=== PATIENT | female | born 1980 | race American Indian/Alaskan Native ===

== ENCOUNTER 2018-10-21 07:14 | Emergency (ER) | payer SELFPAY ==
[2018-10-21 07:22] VITALS: BP 138/81
--- NOTE | 2018-10-21 08:10 | Emergency Department Report ---
ED General Adult HPI - General Chief complaint: Extremity Injury, Lower Stated complaint: RT Greater TOE PAIN Source: patient Mode of arrival: Ambulatory Limitations: Physical Limitation - History of Present Illness Initial comments: 38yo F presents with R foot pain. She states that everyday she walks a long distance for work and stands on her feet for long hours. Pt states that she took a BC powder and iced her foot but still did not have any relief. -: days(s) (2) Location: lower extremity Radiation: non-radiation Severity scale (0 -10): 9 Quality: aching Consistency: constant Improves with: none Worsens with: movement Associated Symptoms: denies other symptoms Treatments Prior to Arrival: NSAID, cold therapy - Related Data Previous Rx's Medication Instructions Recorded Last Taken Type Ibuprofen [Motrin 600 MG tab] 600 mg PO Q8H PRN 7 Days #21 tablet 10/21/18 Unknown Rx Allergies Allergy/AdvReac Type Severity Reaction Status Date / Time No Known Allergies Allergy Unverified 10/21/18 07:17 ED Review of Systems ROS: Stated complaint: RT TOE PAIN Other details as noted in HPI Constitutional: denies: chills, fever Eyes: denies: eye pain, eye discharge, vision change ENT: denies: ear pain, throat pain Respiratory: denies: cough, shortness of breath, wheezing Cardiovascular: denies: chest pain, palpitations Endocrine: no symptoms reported Gastrointestinal: denies: abdominal pain, nausea, diarrhea Genitourinary: denies: urgency, dysuria, discharge Musculoskeletal: as per HPI Skin: denies: rash, lesions Neurological: denies: headache, weakness, paresthesias Psychiatric: denies: anxiety, depression Hematological/Lymphatic: denies: easy bleeding, easy bruising ED Past Medical Hx - Past Medical History Previous Medical History?: No - Surgical History Additional Surgical History: hernia surg at - Social History Smoking Status: Current Every Day Smoker Substance Use Type: None - Medications Home Medications: Home Medications Medication Instructions Recorded Confirmed Last Taken Type Ibuprofen [Motrin 600 MG tab] 600 mg PO Q8H PRN 7 Days #21 tablet 10/21/18 Unknown Rx ED Physical Exam - General Limitations: Physical Limitation (severe pain of R foot with ambulation) General appearance: alert, in no apparent distress - Head Head exam: Present: atraumatic, normocephalic - Eye Eye exam: Present: normal appearance - ENT ENT exam: Present: mucous membranes moist - Neck Neck exam: Present: normal inspection - Respiratory Respiratory exam: Present: normal lung sounds bilaterally. Absent: respiratory distress - Cardiovascular Cardiovascular Exam: Present: regular rate, normal rhythm. Absent: systolic murmur, diastolic murmur, rubs, gallop - GI/Abdominal GI/Abdominal exam: Present: soft, normal bowel sounds - Rectal Rectal exam: Present: deferred - Extremities Exam Extremities exam: Present: normal inspection - Expanded Lower Extremity Exam Right Lower Leg exam: Present: normal inspection Foot/Toe exam: Present: tenderness, swelling (swelling and tendernes over the forefoot and point tenderness at the distal 1st metatarsal) - Back Exam Back exam: Present: normal inspection - Neurological Exam Neurological exam: Present: alert, oriented X3 - Psychiatric Psychiatric exam: Present: normal affect, normal mood - Skin Skin exam: Present: warm, dry, intact, normal color. Absent: rash ED Course Vital Signs 10/21/18 07:21 Temperature 98.4 F Pulse Rate 88 Respiratory 16 Rate Blood Pressure 138/81 O2 Sat by Pulse 100 Oximetry ED Medical Decision Making - Medical Decision Making 38yo F presents with R foot pain. She states that everyday she walks a long distance for work and stands on her feet for long hours. Pt states that she took a BC powder and iced her foot but still did not have any relief. R foot x-rays were ordered and the results are listed below. Pt was instructed to RICE, take NSAIDs as prescribed, and to F/U with PCP. See ER if severe symptoms arise. Patient: AL DASH MR#: [id number] : 1980 Acct:[id number] Age/Sex: 38 / F ADM Date: 10/21/18 Loc: ED Attending Dr: Ordering Physician: ENA NICOLE PA-C Date of Service: 10/21/18 Procedure(s): XR foot 3+V RT Accession Number(s): [id number] cc: ENA NICOLE PA-C Fluoro Time In Minutes: RIGHT FOOT 3 VIEWS INDICATION / CLINICAL INFORMATION: R foot pain. COMPARISON: None available. FINDINGS: Mild degenerative arthrosis is seen within the first MTP joint. Mild dorsal soft tissue swelling is seen overlying the right forefoot. No fracture or dislocation is seen. Signer Name: Kwadwo Akbar MD Signed: 10/21/2018 8:29 AM Workstation Name: [id number] Transcribed By: TL Dictated By: Kwadwo Akbar MD Electronically Authenticated By: Kwadwo Akbar MD Signed Date/Time: 10/21/18 08 Critical care attestation.: If time is entered above; I have spent that time in minutes in the direct care of this critically ill patient, excluding procedure time. ED Disposition Clinical Impression: Foot pain, right Disposition: DC-01 TO HOME OR SELFCARE Is pt being admited?: No Does the pt Need Aspirin: No Condition: Stable Instructions: Arthralgia (ED) Additional Instructions: Pt was instructed to RICE, take NSAIDs as prescribed, and to F/U with PCP. See ER if severe symptoms arise. Prescriptions: Ibuprofen [Motrin 600 MG tab] 600 mg PO Q8H PRN 7 Days #21 tablet PRN Reason: Pain Referrals: PRIMARY CAREMD [Primary Care Provider] - 3-5 Days [facility] [Outside] - 3-5 Days Forms: Work/School Release Form(ED) Time of Disposition: 08:59
--- NOTE | 2018-10-21 08:33 | XRay Report ---
RIGHT FOOT 3 VIEWS INDICATION / CLINICAL INFORMATION: R foot pain. COMPARISON: None available. FINDINGS: Mild degenerative arthrosis is seen within the first MTP joint. Mild dorsal soft tissue swelling is s een overlying the right forefoot. No fracture or dislocation is seen. Signer Name: Kwadwo Akbar MD Signed: 10/21/2018 8:29 AM Workstation Name: [id number]
== END 2018-10-21 09:09 | disposition home or self-care (01) ==
LOC: ED 07:14
DX: M79.671 Pain in right foot (principal); F17.200 Nicotine dependence, unspecified, uncomplicated

== ENCOUNTER 2019-04-16 11:02 | Emergency (ER) | payer SELFPAY ==
[2019-04-16 11:37] VITALS: BP 128/79
--- NOTE | 2019-04-16 11:37 | Event Note ---
ED Screening Note ED Screening Note: states began having dysuria yesterday no abd pain no fever no n/v/d PMHx none no allergies to meds LNMP: 03/28/2019 This initial assessment/diagnostic orders/clinical plan/treatment(s) is/are subject to change based on patients health status, clinical progression and re- assessment by fellow clinical providers in the ED. Further treatment and workup at subsequent clinical providers discretion. Patient/guardian urged not to elope from the ED as their condition may be serious if not clinically assessed and managed. Initial orders include: UA, urine preg
--- NOTE | 2019-04-16 12:07 | Emergency Department Report ---
ED Dysuria HPI - HPI Chief Complaint: Urogenital-Female Stated Complaint: URNIARY TRACK INFECTION Time Seen by Provider: 04/16/19 11:36 Duration: 2 Days Location of Discomfort: Urethra (dysuria) Severity: Mild Symptoms: Dysuria: Yes, Frequency: Yes, Suprapubic Pain: No, Flank Pain: No, Fever: No, Hematuria: No, Abdominal Pain: No, Previous UTI's: Yes Other History: This 38-year-old female presents with dysuria x2 days. She denies vaginal bleeding, vaginal discharge, fever, chills, nausea vomiting or diarrhea ED Review of Systems ROS: Stated complaint: URNIARY TRACK INFECTION Other details as noted in HPI Comment: All other systems reviewed and negative ED Past Medical Hx - Past Medical History Previous Medical History?: No - Surgical History Past Surgical History?: Yes Additional Surgical History: Hernia surgery at - Social History Smoking Status: Never Smoker Substance Use Type: None - Medications Home Medications: Home Medications Medication Instructions Recorded Confirmed Last Taken Type Ibuprofen [Motrin 600 MG tab] 600 mg PO Q8H PRN 7 Days #21 tablet 10/21/18 Unknown Rx Sulfamethoxazole/Trimethoprim 1 each PO BID #14 tablet 04/16/19 Unknown Rx [Bactrim DS TAB] Dysuria Exam - Exam General: Vital signs noted. No distress. Alert and acting appropriately. Exam: Yes Moist Mucous Membranes, No CVA Tenderness, No Abdominal Tenderness, No Rigidity or Guarding ED Course Vital Signs 04/16/19 11:15 Temperature 98.8 F Pulse Rate 99 H Respiratory 18 Rate Blood Pressure 128/79 O2 Sat by Pulse 100 Oximetry ED Medical Decision Making - Medical Decision Making 38-year-old female presents with a cute cystitis ED course: Patient received an antibiotic dose and Motrin during ED stay Urinalysis is positive for WBCs and hematuria I discussed this findings with the patient. Aisha with patient to follow-up with primary care physician Patient is in no acute distress, patient also has on instructions were given to him. He had on exam for ED stay. Critical care attestation.: If time is entered above; I have spent that time in minutes in the direct care of this critically ill patient, excluding procedure time. ED Disposition Clinical Impression: Acute cystitis, Hematuria Disposition: MED SCREENING EXAM-LEFT Is pt being admited?: No Does the pt Need Aspirin: No Condition: Stable Instructions: Urinary Tract Infection in Women (ED) Additional Instructions: Make sure to follow up with the primary care physician as discussed. Take all your medications as you've been prescribed. If you have any worsening symptoms or develop new symptoms please return to ED immediately. Prescriptions: Sulfamethoxazole/Trimethoprim [Bactrim DS TAB] 1 each PO BID #14 tablet Referrals: PRIMARY CARE, [Primary Care Provider] - 3-5 Days [facility] [Outside] - 3-5 Days [facility] [Outside] - 3-5 Days Forms: Work/School Release Form(ED) Time of Disposition: 12:13
[2019-04-16 12:09] LABS: Bilirubin,Urine NEG (Negative); Blood,Urine LG (Negative); Color,Urine Amber (Yellow); Mucus,Urine 3+ /HPF
[2019-04-16 12:10] LABS: RBC,Urine > 182.0 /HPF (0.0-6.0); WBC,Urine > 182.0 /HPF (0.0-6.0)
[2019-04-16 12:11] LABS: HCG Qualitative,Urine Negative (Negative)
== END 2019-04-16 12:34 | disposition left against medical advice (07) ==
LOC: ED 11:02
DX: N30.01 Acute cystitis with hematuria (principal); Z98.890 Other specified postprocedural states; Z79.899 Other long term (current) drug therapy
CPT/HCPCS: 81001; 81025

== ENCOUNTER 2020-06-24 12:28 | Emergency (ER) | payer SELFPAY ==
[2020-06-24 14:41] VITALS: BP 147/89
--- NOTE | 2020-06-24 15:57 | Emergency Department Report ---
ED ENT HPI - General Chief complaint: Dental/Oral Stated complaint: GUMS IRRITATED/CHIPPED TOOTH Time Seen by Provider: 06/24/20 14:42 Source: patient Mode of arrival: Ambulatory Limitations: No Limitations - History of Present Illness Initial comments: This is a 40-year-old female nontoxic, well nourished in appearance, no acute signs of distress presents to the ED with c/o of right lower toothache x 1 weeks. Patient denies following up with a dentist. Patient describes toothache as aching level of 8 out of 10. Patient denies any facial swelling. Patient denies any numbness, tingling, fever, chills, headache, stiff neck, abdominal pain, chest pain, shortness of breath. Patient denies any drug allergies or significant past medical history. MD complaint: tooth pain -: days(s) Location: tooth # Severity: mild Severity scale (0 -10): 8 Quality: aching Consistency: constant Improves with: none Worsens with: none Context- Dental: history of dental caries, poor dental care Associated Symptoms: gum swelling, toothache. denies: fever, cough, pain with swallowing, sore throat, tinnitus, hearing loss, discharge from ear, rhinorrhea - Related Data Previous Rx's Medication Instructions Recorded Last Taken Type Ibuprofen [Motrin 600 MG tab] 600 mg PO Q8H PRN 7 Days #21 tablet 10/21/18 Unknown Rx Sulfamethoxazole/Trimethoprim 1 each PO BID #14 tablet 04/16/19 Unknown Rx [Bactrim DS TAB] Chlorhexidine Mouthwash [Peridex] 15 ml MM BID #1 bottle 06/24/20 Unknown Rx Clindamycin [Clindamycin CAP] 300 mg PO Q8H #21 cap 06/24/20 Unknown Rx Allergies Allergy/AdvReac Type Severity Reaction Status Date / Time No Known Allergies Allergy Verified 06/24/20 14:41 ED Dental HPI - General Chief complaint: Dental/Oral Stated complaint: GUMS IRRITATED/CHIPPED TOOTH Time Seen by Provider: 06/24/20 14:42 Source: patient Mode of arrival: Ambulatory Limitations: No Limitations - Related Data Previous Rx's Medication Instructions Recorded Last Taken Type Ibuprofen [Motrin 600 MG tab] 600 mg PO Q8H PRN 7 Days #21 tablet 10/21/18 Unknown Rx Sulfamethoxazole/Trimethoprim 1 each PO BID #14 tablet 04/16/19 Unknown Rx [Bactrim DS TAB] Chlorhexidine Mouthwash [Peridex] 15 ml MM BID #1 bottle 06/24/20 Unknown Rx Clindamycin [Clindamycin CAP] 300 mg PO Q8H #21 cap 06/24/20 Unknown Rx Allergies Allergy/AdvReac Type Severity Reaction Status Date / Time No Known Allergies Allergy Verified 06/24/20 14:41 ED Review of Systems ROS: Stated complaint: GUMS IRRITATED/CHIPPED TOOTH Other details as noted in HPI Comment: All other systems reviewed and negative Constitutional: denies: chills, fever Eyes: denies: eye pain, eye discharge, vision change ENT: dental pain. denies: ear pain, throat pain Respiratory: denies: cough, shortness of breath, wheezing Cardiovascular: denies: chest pain, palpitations Endocrine: no symptoms reported Gastrointestinal: denies: abdominal pain, nausea, diarrhea Genitourinary: denies: urgency, dysuria, discharge Musculoskeletal: denies: back pain, joint swelling, arthralgia Skin: denies: rash, lesions Neurological: denies: headache, weakness, paresthesias Psychiatric: denies: anxiety, depression Hematological/Lymphatic: denies: easy bleeding, easy bruising ED Past Medical Hx - Past Medical History Previous Medical History?: No - Surgical History Additional Surgical History: Hernia surgery at - Social History Smoking Status: Current Every Day Smoker Substance Use Type: None - Medications Home Medications: Home Medications Medication Instructions Recorded Confirmed Last Taken Type Ibuprofen [Motrin 600 MG tab] 600 mg PO Q8H PRN 7 Days #21 tablet 10/21/18 Unknown Rx Sulfamethoxazole/Trimethoprim 1 each PO BID #14 tablet 04/16/19 Unknown Rx [Bactrim DS TAB] Chlorhexidine Mouthwash [Peridex] 15 ml MM BID #1 bottle 06/24/20 Unknown Rx Clindamycin [Clindamycin CAP] 300 mg PO Q8H #21 cap 06/24/20 Unknown Rx ED Physical Exam - General Limitations: No Limitations General appearance: alert, in no apparent distress - Head Head exam: Present: atraumatic, normocephalic - Eye Eye exam: Present: normal appearance - Expanded ENT Exam Expanded Ear exam: Present: normal external inspection Mouth exam: Present: normal external inspection, tongue normal. Absent: brandy oling, trismus, muffled voice Teeth exam: Present: dental caries, fractured tooth #, dental tenderness #, gingival enlargement, other (no swelling or abscess) - Neck Neck exam: Present: normal inspection, full ROM, other (uvula midline). Absent: tenderness, meningismus, lymphadenopathy - Respiratory Respiratory exam: Absent: respiratory distress - Cardiovascular Cardiovascular Exam: Present: regular rate - Extremities Exam Extremities exam: Present: full ROM - Back Exam Back exam: Present: full ROM - Neurological Exam Neurological exam: Present: alert, oriented X3, normal gait - Psychiatric Psychiatric exam: Present: normal affect, normal mood - Skin Skin exam: Present: warm, dry, intact, normal color. Absent: rash ED Course Vital Signs 06/24/20 14:38 Temperature 98.2 F Pulse Rate 70 Respiratory 18 Rate Blood Pressure 147/89 O2 Sat by Pulse 100 Oximetry - Reevaluation(s) Reevaluation #1: 06/24/20 15:58 Patient is speaking in full sentences with no signs of distress noted. ED Medical Decision Making - Medical Decision Making This is a 40-year-old female that presents with gingivitis and dental caries. Patient is stable and was examined by me. Exam does not show any dental abscess. Patient was referred to a dentist to follow-up in 3 to 5 days. At time of discharge, the patient does not seem toxic or ill in appearance. No acute signs of distress noted. Patient agrees to discharge treatment plan of care. No further questions noted by the patient. Critical care attestation.: If time is entered above; I have spent that time in minutes in the direct care of this critically ill patient, excluding procedure time. ED Disposition Clinical Impression: Dental caries, Gingivitis Disposition: DC- TO HOME OR SELFCARE Is pt being admited?: No Does the pt Need Aspirin: No Condition: Stable Additional Instructions: Follow-up with a dentist doctor in 3-5 days or if symptoms worsen and continue return to emergency room as soon as possible. Prescriptions: Clindamycin [Clindamycin CAP] 300 mg PO Q8H #21 cap Chlorhexidine Mouthwash [Peridex] 15 ml MM BID #1 bottle Referrals: PRIMARY CARE,MD [Primary Care Provider] - 3-5 Days [facility] [Outside] - 3-5 Days Time of Disposition: 15:59
== END 2020-06-24 19:00 | disposition home or self-care (01) ==
LOC: ED 12:28
DX: K05.10 Chronic gingivitis, plaque induced (principal); K02.9 Dental caries, unspecified; F17.200 Nicotine dependence, unspecified, uncomplicated; Z79.899 Other long term (current) drug therapy; Z98.890 Other specified postprocedural states
CPT/HCPCS: 99281